=== PATIENT | female | born 1980 | race African-American/Black ===

== ENCOUNTER 2021-02-06 19:44 | Emergency (ER) | payer SELFPAY ==
[2021-02-06 20:07] VITALS: TEMP 98.2; BMI 20.5
[2021-02-06] MEDS ORDERED: metoPROLOL SUCCINATE 25 MG TAB.SR.24H (FP) PO ONE (22:06)
[2021-02-06 22:11] VITALS: BP 175/113; PULSE 87
== END 2021-02-06 22:40 | disposition home or self-care (01) ==
LOC: JER 19:44
DX: T18.108A Unspecified foreign body in esophagus causing other injury, initial encounter (principal)
CPT/HCPCS: 99284-25